=== PATIENT | male | born 1965 | race Caucasian/White ===

== ENCOUNTER 2021-10-06 11:47 | Emergency (ER) | payer MEDICARE, OTHER ==
[~2021-10-06] VITALS: Ht 180.3 cm; Wt 90.7 kg
[2021-10-06 12:04] VITALS: BP 133/87
[2021-10-06] MEDS ORDERED: IBUP800T27 PO (12:51)
[2021-10-06] MEDS ORDERED: METH750T22 PO (12:51)
== END 2021-10-06 12:57 | disposition home or self-care (01) ==
LOC: ER 11:47
DX: G44.209 Tension-type headache, unspecified, not intractable (principal); E11.9 Type 2 diabetes mellitus without complications
CPT/HCPCS: 70450